=== PATIENT | female | born 1965 | race Caucasian/White ===

== ENCOUNTER 2021-05-19 12:49 | Outpatient (CLI) | payer MEDICARE, MEDICAID, SELFPAY ==
--- NOTE | 2021-05-19 13:01 | ECHO_ITS ---
Patient Info Name: Diana Hatfield Age: 55 years : 1965 Gender: Female Ht: 66 in Wt: 218 lbs BSA: 2.19 m2 HR: 83 bpm BP: 140 / 75 mmHg Heart Rhythm: Sinus Rhythm Technical Quality: Good Exam Date: 05/19/2021 1:15 PM Exam Location: [facility] Patient Status: Outpatient Admit Date: 05/19/2021 Staff Ordering Physician: Angela Patel NP Cart Attendant: Maame Esposito RDCS Attending Provider: Angela Patel NP Referring Physician: Jorge NICOLE; Exam Type: CA echo doppler color flow Study Info Indications - localized edema Complete two-dimensional, color flow and Doppler transthoracic echocardiogram is performed. Summary 1. Complete two-dimensional, color flow and Doppler transthoracic echocardiogram is performed. 2. Left ventricular chamber dimension is normal. 3. Left ventricular systolic function is normal, estimated at 65-70%. 4. There is no increased left ventricular wall thickness. 5. The left ventricular diastolic function is grade I diastolic dysfunction. 6. There is trace tricuspid valve regurgitation. 7. No pulmonary hypertension, estimated pulmonary arterial systolic pressure is 19 mmHg. Left Ventricle Left ventricular chamber dimension is normal. Left ventricular systolic function is normal, estimated at 65-70%. There is no increased left ventricular wall thickness. The left ventricular diastolic function is grade I diastolic dysfunction. Right Ventricle Right ventricular chamber dimension is normal. Right ventricular systolic function is normal. Left Atria Left atrial chamber dimension is normal. Right Atria Right atrial chamber dimension is normal. Aortic Valve The aortic valve is trileaflet. There is no aortic valve stenosis. There is no aortic valve regurgitation. Pulmonic Valve The pulmonic valve is not well visualized. Mitral Valve The mitral valve has normal leaflets. There is trace mitral valve regurgitation. Tricuspid Valve The tricuspid valve leaflets are normal. There is trace tricuspid valve regurgitation. No pulmonary hypertension, estimated pulmonary arterial systolic pressure is 19 mmHg. Pericardium/Pleural The pericardium appears normal. There is no pericardial effusion. Inferior Vena Cava Normal inferior vena cava with >50% collapse upon inspiration consistent with normal right atrial pressure, 5 mmHg. Aorta The aortic root size at the sinus of Valsalva is normal. Left Ventricular Outflow Tract Name Value Normal LVOT 2D LVOT Diameter 2.0 cm LVOT Doppler LVOT Peak Gradient 4 mmHg LVOT Mean Gradient 2 mmHg LVOT VTI 22 cm LVOT VTI/AV VTI Ratio 0.8 LVOT Stroke Volume 65 ml LVOT CO 13.1 l/min LVOT CI 6.0 l/min/m2 Pulmonic Valve Name Value Normal
== END 2021-05-19 12:50 | disposition home or self-care (01) ==
PROVIDERS: PCP Family Medicine; Visit Provider Nurse Practitioner Family
DX: R60.0 Localized edema (principal)
CPT/HCPCS: 93306

== ENCOUNTER 2021-06-09 10:05 | Outpatient (CLI) | payer MEDICARE, MEDICAID, SELFPAY ==
--- NOTE | ~2021-06-09 | MM_ITS ---
EXAMINATION: MM screening michelle BI w gato HISTORY: Screening TECHNIQUE: Craniocaudal and mediolateral oblique 3-D tomosynthesis images were obtained and synthetic 2-D images were generated. CAD analysis was submitted and interpreted. COMPARISON: No prior mammogram is available for comparison at this institution. BREAST PARENCHYMAL COMPOSITION: There are scattered areas of fibroglandular density. FINDINGS: There is no evidence of suspicious mass, calcification, or architectural distortion to sugg est malignancy in either breast. There has been no suspicious interval change. IMPRESSION: 1. No mammographic evidence of malignancy. 2. Recommend routine screening mammography in one year. BI-RADS Category 1: Negative Reviewed, dictated and finalized at location A.
--- NOTE | ~2021-06-09 | DEXA_ITS ---
Bone Density Report Name: Diana Hatfield Age: 55 Sex: Female Ethnicity: White Date of : 1965 Indication: postmenopausal; prior fracture; Referring Provider: Anthony Bella Study: Bone densitometry was performed. Exam Date: June 09, 2021 Accession number: [id number] Bone Density: Region BMD T-score Z-score Classification AP Spine (L1-L4) 1.013 -0.3 0.8 Normal Femoral Neck (Left) 0.945 0.9 1.9 Normal Total Hip (Left) 0.989 0.4 1.1 Normal Total Hip Bilateral Avg 1.005 0.5 1.2 Normal Femoral Neck (Right) 0.944 0.9 1.9 Normal Total Hip (Right) 1.019 0.6 1.3 Normal World Health Organization criteria for BMD impression classify patients as: Normal (T-score at or above -1.0), Osteopenia (T-score between -1.0 and -2.5), or Osteoporosis (T-score at or below -2.5). 10-year Fracture Risk: FRAX not reported because: All T-scores for Spine Total, Hip Total, Femoral Neck at or above -1.0 Clinical Information Provided by Patient: Has had a low trauma fracture Has used the following medications: Vitamin D Patient maximum height was 66 Menopause Age: 53 Does not regularly consume dairy products Drinks caffeinated beverages Onset of menses at age 13 Number of children 3 Impression: The patient has normal bone mass. The patient has risk factors, including: previous fracture. Discussion: BONE DENSITY IS ABOVE THE MINIMUM DESIRABLE LEVEL AT ALL SKELETAL SITES TESTED. This patient?s bone mineral density is above the minimum desirable level (T-score -1.0 or better) at all sites measured. The patient should follow a healthful lifestyle (good nutrition with adequate calcium and vitamin D, and appropriate weight-bearing exercise). Follow-Up: Consider repeating this study in 5 years or sooner if there is some new clinical indication. Reported by: LON on 06/09/2021 10:35:00 AM. Reviewed, dictated and finalized at location [facility]
== END 2021-06-09 10:06 | disposition home or self-care (01) ==
LOC: ANHIMG 10:11
PROVIDERS: PCP Family Medicine; Visit Provider Family Medicine
DX: Z12.31 Encounter for screening mammogram for malignant neoplasm of breast (principal); Z78.0 Asymptomatic menopausal state
CPT/HCPCS: 77063; 77067; 77080

== ENCOUNTER → 2022-04-14 09:40 | Outpatient (CLI) | payer MEDICARE, MEDICAID, SELFPAY ==
--- NOTE | ~2022-04-14 | MR_ITS ---
EXAMINATION: MR lumbar spine wo con DATE: 04/14/2022 10:18 INDICATION: Low back pain. Lumbar radiculopathy. Other intervertebral disc degeneration. TECHNIQUE: Magnetic resonance imaging (MRI) of the lumbar spine was performed without intravenous con trast. Sequences included sagittal T2-weighted FSE, sagittal T2-weighted FS FSE, sagittal T1-weighted FSE, and axial T2-weighted FSE. COMPARISON: None FINDINGS: There is 10 degrees levoscoliosis of lumbar spine. Vertebral body heights are normal. Inter vertebral disc heights are normal. The distal spinal cord signal intensity is normal. The conus medul rashaun is at T12-L1. The following disc levels are specifically discussed: L1-L2: The disc is bulging. There is mild bilateral facet joint osteoarthritis. There is no neural fo raminal stenosis. There is mild central canal stenosis. L2-L3: The disc is bulging. There is mild right facet joint osteoarthritis. There is mild bilateral n eural foraminal stenosis. There is mild central canal stenosis. L3-L4: The disc is bulging. There is severe bilateral facet joint osteoarthritis. There is mild bilat eral neural foraminal stenosis. There is mild central canal stenosis. L4-L5: The disc is bulging and has an annular fissure. There is severe bilateral facet joint osteoart hritis. There is mild bilateral neural foraminal stenosis. There is mild central canal stenosis. L5-S1: The disc does not extend beyond the endplate margin. There is mild bilateral facet joint osteo arthritis. There is no neural foraminal stenosis. There is no central canal stenosis. IMPRESSION: 1. Mild lumbar spondylosis. 2. Lumbar levoscoliosis. Reviewed, dictated and finalized at location A.
--- NOTE | ~2022-04-14 | XR_ITS ---
XR lumbar spine 6V w bending DATE: 04/14/2022 11:04 INDICATION: Back pain TECHNIQUE: AP, lateral, coned lateral lumbosacral and bilateral oblique views. Flexion and extension lateral views. COMPARISON: 04/14/2022 MRI lumbar spine FINDINGS: There is osteopenia. There is mild rotatory levoscoliosis of the lumbar spine. The included lower thoracic and lumbar pedicles are intact. No fracture, bone destruction, spondyloly sis or spondylolisthesis is detected. There is mild degenerative disc disease at the L1-2 through L4-5 interspaces. L5-S1 interspace is graciela y well preserved. No instability of the lumbar spine is noted. The sacroiliac joints are intact. There is calcification of the abdominal aorta and iliac arteries. IMPRESSION: Osteopenia Mild degenerative disc disease Reviewed, dictated and finalized at location A.
--- NOTE | ~2022-04-14 | XR_ITS ---
XR pelvis 1-2V DATE: 04/14/2022 11:04 INDICATION: Back pain, pelvic pain TECHNIQUE: AP pelvis COMPARISON: None FINDINGS: The pubic symphysis and sacroiliac joints are intact. Hip joint spaces are symmetric and re latively preserved. No pelvic fracture or bone destruction. IMPRESSION: Negative Reviewed, dictated and finalized at location A. IMPRESSION: Negative
== END ==
PROVIDERS: PCP Family Medicine
DX: M51.36 Other intervertebral disc degeneration, lumbar region (principal); M85.88 Other specified disorders of bone density and structure, other site; M47.26 Other spondylosis with radiculopathy, lumbar region
CPT/HCPCS: 72114; 72148; 72170

== ENCOUNTER 2022-10-05 22:41 | Emergency (ER) | payer MEDICARE, MEDICAID, SELFPAY ==
[2022-10-05 22:58] VITALS: PULSE 91; RESP 18; TEMP 36.7; O2SAT 100
--- NOTE | 2022-10-05 23:12 | ED.RECABL ---
HPI - Recheck/Abnormal Lab/Rx General Chief Complaint: Recheck/Abnormal Lab/Rx Stated Complaint: HYPOGLYCEMIA Time Seen by Provider: 10/05/22 22:58 History of Present Illness HPI narrative: This is a 57-year-old female with past medical history of type 1 diabetes on an insulin pump, brought in by EMS for 2 episodes of hypoglycemia. Patient states she ordered dinner this evening and miscounted her carbs. She denies any recent change in her pump or insulin regiment. 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 Approximately an hour later, she felt nauseous again with blood glucose reading of 45. She was evaluated a second time and given glucose supplementation. She has no other complaints today. Related Data Home Medications Medication Instructions Recorded Confirmed insulin lispro 100 unit/mL 1 sliding scale dose subcut 04/14/21 05/18/21 subcutaneous solution (Humalog USEASDIRECTD U-100 Insulin) gabapentin 800 mg tablet 800 mg PO QHS 04/28/21 05/18/21 ibuprofen 800 mg tablet 800 mg PO BID 04/28/21 05/18/21 Allergies Allergy/AdvReac Type Severity Reaction Status Date / Time lisinopril AdvReac Unknown SOB Verified 05/18/21 16:04 Review of Systems Review of Systems: CONSTITUTIONAL: Denies fever, chills, or sweats. EYES: Denies visual changes, redness, or discharge. ENT: Denies rhinorrhea, congestion, sore throat, or otalgia. CARDIOVASCULAR: Denies chest pain, palpitations, or edema. RESPIRATORY: Denies cough or dyspnea. GASTROINTESTINAL: Nausea denies abdominal pain, vomiting, or diarrhea. GENITOURINARY: Denies dysuria or hematuria. SKIN: Denies rash or itching. MUSCULOSKELETAL: Denies back pain, joint pain, or myalgia. NEUROLOGIC: Denies headache, numbness, dizziness, or weakness. PSYCHIATRIC: Denies anxiety or depression. [facility] Past Medical History Medical History Bilateral hip pain Chronic venous insufficiency of lower extremity Diabetic neuropathy Labral tear of left hip joint Localized edema Tubal infertility in female (~1988) Type 1 diabetes mellitus Surgical History Surgical History H/O foot surgery (~2018) Right 2nd toe tendon/ligament repair History of hip surgery 2018 - Left hip labral tear repair Family History Family History Father Hypertension Heart disease Depression Anxiety Mother Diabetes mellitus Heart disease Sibling Diabetes mellitus Social History Social History Smoking status: Former smoker Alcohol intake: current Substance use: never Exam Narrative: GENERAL: Well-appearing, well-nourished, and in no acute distress. HEAD: Normocephalic, atraumatic. EYES: PERRLA and EOMI. ENT: Nares clear, no rhinorrhea or epistaxis. Mucous membranes moist. Oropharynx without tonsillar hypertrophy exudate or other lesions. NECK: Supple. No adenopathy or masses. No carotid bruits or JVD CHEST: Clear to auscultation. No respiratory distress. No wheezes rales or rhonchi HEART: Regular rate and rhythm. No murmur heard. Normal peripheral pulses. ABDOMEN: Soft, nontender, nondistended, normal active bowel sounds. EXTREMITIES: Normal range of motion. No edema. SKIN: Warm, dry, no rash. NEURO: No focal deficits. Alert and oriented x3. PSYCH: Normal mood and affect. Course Course Emergency Course: 01:21 - Repeat fingerstick 165 at 1 hour, then 342 at 2 hours. On comparison to the patient's home monitor, initial blood sugars were not correlating. Patient recalibrated her monitor and it is now correlating. She has a home glucometer and is comfortable with managing hyperglycemic episodes. Will discharge. Discussed return emergency precautions including signs/symptoms of hypoglycemia. Advis
[2022-10-05 23:15] LABS: Glucose Point of Care 165 mg/dl (65-105)
[2022-10-05 23:22] VITALS: BP 178/84
[2022-10-06 00:44] LABS: Glucose Point of Care 342 mg/dl (65-105)
[2022-10-06 01:45] VITALS: PULSE 100; RESP 20; O2SAT 100
== END 2022-10-06 01:50 | disposition home or self-care (01) ==
PROVIDERS: Emergency Provider Preventive Medicine Aerospace Medicine
DX: E10.649 Type 1 diabetes mellitus with hypoglycemia without coma (principal); E10.40 Type 1 diabetes mellitus with diabetic neuropathy, unspecified; I87.2 Venous insufficiency (chronic) (peripheral); Z96.41 Presence of insulin pump (external) (internal); Z87.891 Personal history of nicotine dependence; Z79.4 Long term (current) use of insulin
CPT/HCPCS: 82948; 99282